=== PATIENT | female | born 1955 | race Two or more races ===

== ENCOUNTER 2022-10-02 06:20 | Day surgery (SDC) | payer OTHER ==
[~2022-10-02] VITALS: Ht 160 cm; Wt 96.6 kg
[~2022-10-02 06:20] MED LIST: ALTACE10 MG PO; FAMOT PO; GLUMETZA500 MG PO; TIROSINT50 MCG PO
[2022-10-02] MEDS ORDERED: IBUPROFEN600 MG PO (12:53)
== END 2022-10-02 16:25 | disposition home or self-care (01) ==
LOC: CIR.AMB 06:20
PROVIDERS: ATTEND Obstetrics & Gynecology Gynecology
DX: C54.1 Malignant neoplasm of endometrium (principal); N84.0 Polyp of corpus uteri; Z20.822 Contact with and (suspected) exposure to COVID-19; I10 Essential (primary) hypertension; E11.9 Type 2 diabetes mellitus without complications; E03.9 Hypothyroidism, unspecified; Z79.84 Long term (current) use of oral hypoglycemic drugs

== ENCOUNTER → 2022-12-05 06:00 | Outpatient (CLI) | payer OTHER ==
[~2022-12-05] VITALS: Ht 160 cm; Wt 96.6 kg
[~2022-12-05 06:00] MED LIST changes: +IBUPROFEN600 MG PO
== END | disposition home or self-care (01) ==
LOC: LAB 06:00 → SURH 12-07 10:15 → EDSTATUS 12-07 10:15
PROVIDERS: ATTEND Obstetrics & Gynecology Gynecologic Oncology
DX: Z01.818 Encounter for other preprocedural examination (principal); C54.1 Malignant neoplasm of endometrium; D64.9 Anemia, unspecified; Z20.828 Contact with and (suspected) exposure to other viral communicable diseases; N39.0 Urinary tract infection, site not specified